=== PATIENT | female | born 2000 | race Caucasian/White ===

== ENCOUNTER 2025-07-21 18:08 | Emergency (ER) | payer OTHER | END 2025-07-21 20:33 | disposition home or self-care (01) | LOC: CSHERS 18:08 | DX: S61.451A Open bite of right hand, initial encounter (principal); L03.113 Cellulitis of right upper limb; W54.0XXA Bitten by dog, initial encounter; Z23 Encounter for immunization | CPT/HCPCS: 90471; 90715 ==